=== PATIENT | male | born 1985 | race Caucasian/White ===

== ENCOUNTER 2018-02-28 14:10 | Emergency (ER) | payer MEDICAID ==
[~2018-02-28] VITALS: Ht 170.2 cm; Wt 78.9 kg
[2018-02-28 14:24] VITALS: BP 139/89; Ht 170.2 cm; Wt 78.9 kg
== END 2018-02-28 15:12 | disposition home or self-care (01) ==
LOC: ED 14:10
DX: B07.8 Other viral warts (principal)

== ENCOUNTER 2020-05-26 15:16 | Emergency (ER) | payer MEDICAID, SELFPAY ==
[~2020-05-26] VITALS: Ht 170.2 cm; Wt 72.6 kg
[2020-05-26 15:18] VITALS: Ht 170.2 cm; Wt 72.6 kg
[2020-05-26 18:17] VITALS: BP 140/95
== END 2020-05-26 18:18 | disposition home or self-care (01) ==
LOC: ED 15:16
DX: U07.1 COVID-19 (principal)
CPT/HCPCS: U0003